=== PATIENT | female | born 1995 | race Caucasian/White ===

== ENCOUNTER 2016-12-02 13:29 | Emergency (ER) | payer MEDICAID, OTHER ==
[~2016-12-02] VITALS: Ht 152.4 cm; Wt 78.0 kg
[~2016-12-02 13:29] MED LIST: ACET1TAB40 PO; IBUP-1542 PO
[2016-12-02 13:32] VITALS: Ht 152.4 cm; Wt 78.0 kg
[2016-12-02 15:11] LABS: URINE BLOOD (Dip) POC 3+ (NEGATIVE)
[2016-12-02 15:16] LABS: URINE BLOOD (Dip) POC 3+ (NEGATIVE)
[2016-12-02] MEDS ORDERED: IBUPROFEN 800 MG TAB PO ONE (15:30)
--- NOTE | 2016-12-02 15:57 | ERD ---
ER Documentation Chief Complaint Date/Time DATE: 12/02/16 TIME: 15:54 Chief Complaint pelvic pain x 4-5 days HPI This is a 21-year-old female who presents the emergency department today complaining of some intermittent pelvic pain and some cramping and some discharge and some nausea. Patient states that 2 weeks ago she had a new sexual partner and had some pain with intercourse at that time. Patient states that she did use a condom. States she has had 2 partners recently. States her last menstrual period was on the . States that she has had some pink discharge for the past couple of days. States she is taking ibuprofen for the pain. Denies any dysuria, fevers or chills. ROS All systems reviewed and are negative except as per history of present illness. Medications Home Meds Active Scripts Metronidazole* (Flagyl*) 500 Mg Tablet, 500 MG PO BID for 7 Days, TAB Prov:AMINTA LUCAS PA-C 12/02/16 Ibuprofen* (Motrin*) 600 Mg Tab, 600 MG PO Q6, #30 TAB Prov:AMINTA LUCAS PA-C 12/02/16 Cephalexin* (Keflex*) 500 Mg Capsule, 500 MG PO QID for 7 Days, CAP Prov:AMINTA LUCAS PA-C 12/02/16 Acetaminophen-Codeine* (Acetaminophen-Cod #3*) 300-30 Mg Tab, 1 TAB PO Q4H Y for PAIN, #14 TAB Prov:MAT HAYS MD 03/01/15 Ibuprofen* (Motrin*) 600 Mg Tab, 600 MG PO Q6, #20 TAB Prov:MAT HAYS MD 03/01/15 Allergies Allergies: Coded Allergies: Penicillins (Verified Allergy, Mild, RASH, 03/01/15) PMhx/Soc Medical and Surgical Hx: pt denies Medical Hx, pt denies Surgical Hx History of Surgery: No Hx Neurological Disorder: No Hx Respiratory Disorders: No Hx Cardiac Disorders: No Hx Miscellaneous Medical Probl: No Hx Alcohol Use: No Hx Substance Use: No Hx Tobacco Use: No Smoking Status: Never smoker Physical Exam Vitals Vital Signs Date Time Temp Pulse Resp B/P Pulse Ox O2 Delivery O2 Flow Rate FiO2 12/02/16 13:32 98.1 72 18 146/84 99 Physical Exam Const: No acute distress Head: Atraumatic Eyes: Normal Conjunctiva ENT: Normal External Ears, Nose and Mouth. Neck: Full range of motion..~ No meningismus. Resp: Clear to auscultation bilaterally Cardio: Regular rate and rhythm, no murmurs Abd: Soft, mild pelvic tenderness non distended. Normal bowel sounds. No tenderness at McBurney's : Vaginal exam with evidence of IUD string. No evidence of vaginal bleeding. Purulent discharge. No evidence of yeast. No cervical motion tenderness. Skin: No petechiae or rashes Back: No midline or flank tenderness Ext: No cyanosis, or edema Neur: Awake and alert Psych: Normal Mood and Affect Results 24 hrs Laboratory Tests Test 12/02/16 15:17 Bedside Urine pH (LAB) 6.0 Bedside Urine Protein (LAB) 2+ Bedside Urine Glucose (UA) Negative Bedside Urine Ketones (LAB) Negative Bedside Urine Blood 3+ Bedside Urine Nitrite (LAB) Negative Bedside Urine Leukocyte Esterase (L 3+ Current Medications Medications (Trade) Dose Ordered Sig/Darshan Route PRN Reason Start Time Stop Time Status Last Admin Dose Admin Ibuprofen (Motrin) 800 mg ONCE ONCE PO 12/02/16 15:30 12/02/16 15:31 DC 12/02/16 15:45 Azithromycin (Zithromax) 1,000 mg ONCE ONCE PO 12/02/16 16:30 12/02/16 16:31 DC Ceftriaxone Sodium (Rocephin) 250 mg ONCE ONCE IM 12/02/16 16:30 12/02/16 16:31 DC DIAGNOSTIC IMAGING REPORT Patient: HELADIO BENZ : 1995 Age: 21 Sex: F [id number] DOS: 12/02/16 0000 Ordering MD: AMINTA LUCAS PA-C Location: [facility] Room/Bed: PROCEDURE: US Pelvis. CLINICAL INDICATION: Pelvic pain, right greater than left. TECHNIQUE: Multiple transabdominal and transvaginal sonographic images of the pelvis were obtained. COMPARISON: None. FINDINGS: The uterus is anteflexed in position and measures 8.8 x 3.9 x 4.9 cm (89 cc). The endometrial complex is homogeneous in echogenicity and measures 5 and 6 mm in thickness. An intrauterine device is in place within the upper endometrial cavity. The cervix is normal. Trace free pelvic fluid is present. The right and left ovaries are symmetric in size with Doppler flow. The right ovary measures 2.8 x 2.4 x 2.4 cm (8.6 cc). The left ovary measures 3.6 x 3.2 x 2.9 cm (18 cc). A small simple cyst/dominant follicle of the left ovary measuring 2.3 cm is observed. There is a small collapsed follicle/cyst of the right ovary measuring 1.3 cm. IMPRESSION: Small simple cyst/dominant follicle of the left ovary with smaller collapsed follicle/cyst of the right ovary. Intrauterine device within the upper endometrial cavity. RPTAT: [facility] .Antonella Day MD, MD Date Time Electronically viewed and signed by .Antonella Day MD, on 12/02/2016 16:05 .T/ CC: AMINTA LUCAS PA-C Procedures/MDM This is a 21-year-old female who presents to the emergency department today complaining of some intermittent pelvic pain, nausea and some pink discharge. Given patient's complaints I did obtain a UA as well as ultrasound UA shows 3+ leukocyte esterase. Negative nitrates. 3+ blood. Urine test is negative Ultrasound shows a small simple cyst and dominant follicle of the left ovary with smaller collapsed follicle cyst in the right ovary. There is an intrauterine device within the upper endometrial cavity. There is trace free pelvic fluid. Cervix is normal. Bilateral ovaries are symmetric in size with Doppler flow. Patient was given Motrin here in the emergency department Patient was requesting to be treated for sexually transmitted infections. She was given azithromycin and ceftriaxone here in the emergency department. The urine was sent for gonorrhea and chlamydia. On patient's pelvic exam she did have some purulent discharge that would be concerning for trichomoniasis. She does not have any cervical motion tenderness of lower suspicion for PID. Patient was given a prescription for metronidazole, Keflex, Motrin. She was instructed to make sure that her sexual partners get tested and treated. Patient understood. I also explained her that she does need to follow-up with her advanced manager in regards to her ovarian cysts. Patient understood Patient symptoms at this time is consistent with intermittent pelvic pain and urinary tract infection. Low suspicion for ectopic , tubal ovarian abscess or ovarian torsion. At this time the patient is stable for discharge and outpatient management. Patient should follow up with their PCP in the next 1-2 days. They may return to the emergency department sooner for any persistent or worsening of symptoms. Patient understood and agreed with the plan. At this time the patient is stable for discharge and outpatient management. Patient should follow up with their PCP in the next 1-2 days. They may return to the emergency department sooner for any persistent or worsening of symptoms. Patient understood and agreed with the plan. Departure Diagnosis: Primary Impression: Pelvic pain in female Additional Impression: UTI (urinary tract infection) Urinary tract infection type: site unspecified Hematuria presence: with hematuria Qualified Code: N39.0 - Urinary tract infection with hematuria, site unspecified Condition: Fair AMINTA LUCAS PA-C Dec 02, 2016 15:57
--- NOTE | 2016-12-02 16:06 | RADRPT ---
PROCEDURE: US Pelvis. CLINICAL INDICATION: Pelvic pain, right greater than left. TECHNIQUE: Multiple transabdominal and transvaginal sonographic images of the pelvis were obtained . COMPARISON: None. FINDINGS: The uterus is anteflexed in position and measures 8.8 x 3.9 x 4.9 cm (89 cc). The endometrial compl ex is homogeneous in echogenicity and measures 5 and 6 mm in thickness. An intrauterine device is in place within the upper endometrial cavity. The cervix is normal. Trace free pelvic fluid is present . The right and left ovaries are symmetric in size with Doppler flow. The right ovary measures 2.8 x 2.4 x 2.4 cm (8.6 cc). The left ovary measures 3.6 x 3.2 x 2.9 cm (18 cc). A small simple cyst/jesse nant follicle of the left ovary measuring 2.3 cm is observed. There is a small collapsed follicle/c yst of the right ovary measuring 1.3 cm. IMPRESSION: Small simple cyst/dominant follicle of the left ovary with smaller collapsed follicle/cyst of the ri ght ovary. Intrauterine device within the upper endometrial cavity. RPTAT: HLST .Antonella Day MD, Date Time Electronically viewed and signed by .Antonella Day MD, on 12/02/2016 16:05 .T/
[2016-12-02] MEDS ORDERED: CEFTRIAXONE 250 MG INJ IM ONE (16:30)
[2016-12-02] MEDS ORDERED: AZITHROMYCIN 250 MG TAB PO ONE (16:30)
[2016-12-02] MEDS ORDERED: CEPH-443 PO (16:57)
[2016-12-02] MEDS ORDERED: IBUP-1542 PO (16:57)
[2016-12-02] MEDS ORDERED: METR500T PO (16:57)
[2016-12-02] MEDS ORDERED: LIDOCAINE 2% (MDV) 20 ML INJ INJ ONE (17:30)
== END 2016-12-02 18:15 | disposition home or self-care (01) ==
LOC: FTE 13:29
DX: R10.2 Pelvic and perineal pain (principal); N39.0 Urinary tract infection, site not specified
CPT/HCPCS: 76830; 76856; 81003; 87591; 96372; J0696; Z7502; Z7610